=== PATIENT | female | born 1990 | race Caucasian/White ===

== ENCOUNTER 2017-04-02 17:58 | Emergency (ER) | payer MEDICAID ==
[~2017-04-02] VITALS: Ht 175.3 cm; Wt 102.0 kg
[2017-04-02 18:00] VITALS: BP 134/90; PULSE 86; RESP 15; TEMP 98.4; O2SAT 97
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
== END 2017-04-02 20:58 | disposition left against medical advice (07) ==
LOC: NEPK 17:58
DX: M54.2 Cervicalgia (principal)
CPT/HCPCS: 99281